=== PATIENT | male | born 1930 | race Caucasian/White ===

== ENCOUNTER 2020-03-23 14:23 | Observation (INO) | payer MEDICARE ==
[~2020-03-23] VITALS: Ht 182.9 cm; Wt 63.5 kg
[2020-03-23 14:44] LABS: BASOPHILS ABSOLUTE AUTO 0.01 K/mm3 (0.00-0.23); BASOPHILS PERCENT AUTO 0 % (0-2); EOSINOPHILS PERCENT AUTO 0 % (0-6); Hemoglobin 12.8 g/dL (13.5-17.5); IMMATURE GRAN ABSOLUTE AUTO 0.08 K/mm3 (0.00-0.10); IMMATURE GRAN PERCENT AUTO 1 % (0-1); LYMPHOCYTES ABSOLUTE AUTO 0.44 K/mm3 (0.84-5.20); LYMPHOCYTES PERCENT AUTO 4 % (21-46); MONOCYTES PERCENT AUTO 6 % (4-13); Mean Corpuscular HGB 33.9 pg (26.0-34.0); Mean Corpuscular HGB Conc 33.7 g/dL (31.5-36.5); Mean Corpuscular Volume 101 fL (80-100); NEUTROPHILS ABSOLUTE AUTO 11.17 K/mm3 (1.96-9.15); NEUTROPHILS PERCENT AUTO 89 % (41-73); Platelet Count 154 K/mm3 (150-400); RDW Coefficient Variation 12.4 % (11.7-14.2); RDW Standard Deviation 45.9 fL (35.1-46.3); Red Blood Cell Count 3.78 M/mm3 (4.30-5.90)
[2020-03-23 14:59] LABS: International Normalized Ratio 1.03
[2020-03-23 15:06] LABS: Alanine Aminotransfer (ALT/SGP 47 U/L (12-78); Albumin, Blood 3.3 g/dL (3.4-5.0); Albumin/Globulin Ratio 0.8 (0.8-1.8); Alk Phos 64 U/L (50-136); Anion Gap 6 mmol/L (6-16); Aspartate Aminotrans (AST/SGOT 61 U/L (12-37); Bilirubin, Total 1.6 mg/dL (0.1-1.0); Blood Urea Nitrogen 41 mg/dL (8-24); Bun/Creatinine Ratio 30.6 (12.0-20.0); CO2, Blood 27 mmol/L (21-32); Calcium, Blood 8.7 mg/dL (8.5-10.1); Chloride, Blood 108 mmol/L (98-108); Creatinine, Blood 1.34 mg/dL (0.60-1.20); Ethanol (Alcohol), Blood, Med <3 mg/dL; Glomerular Filtration Rate 53 (60-); Glucose, Blood 117 mg/dL (70-99); Potassium, Blood 4.4 mmol/L (3.5-5.5); Sodium, Blood 141 mmol/L (136-145); Total Protein, Blood 7.3 g/dL (6.4-8.2)
[2020-03-23] MEDS ORDERED: ATOR10 PO (15:32)
[2020-03-23 17:32] LABS: Source, Urine Catheter
[2020-03-23 17:38] LABS: Appearance, Urine Clear (Clear); Bilirubin, Urine Neg (Neg); Blood, Urine 5+ (Neg); Color, Urine Yellow (P-Yellow); Glucose Qualitative, Urine Neg (Neg); Ketones, Urine Neg (Neg); Leukocyte Esterase, Urine Neg (Neg); Nitrite, Urine Neg (Neg); Protein, Urine 2+ (Neg); Specific Gravity, Urine 1.015 (1.003-1.022); Urobilinogen, Urine NORM (Normal)
[2020-03-23 17:56] LABS: Bacteria Not Seen /hpf; Squamous Epithelial Cells Not Seen /hpf (Few); White Blood Cells, Urine Not Seen /hpf (0-5)
[2020-03-23 19:53] LABS: Influenza A, PCR Negative (NEGATIVE); Influenza B, PCR Negative (NEGATIVE); Resp Syncytial Virus, PCR Negative (NEGATIVE); SARS-Cov-2 (COVID-19) PCR, MMC Negative (NEGATIVE)
--- NOTE | 2020-03-23 22:01 | NUR ---
transfer report from [facility] on 89 year old MAle found down being admitted with CVA. Await admission. DNR status
--- NOTE | 2020-03-24 00:14 | NUR ---
New PT admitted after being found down by Daughter & having altered mental status. PT unable to state name date & reported to have baseline dementia. Speech soft nonsensical to questions asked. He does mutter sentences under his breath. DNR status, PT has Hospice referral. DTR was in ER but not present for admission. PT not able to answer questions about current medical contions or past hx. Pleasnatly confused. High fall risk, has multiple scattered bruises in various stages. NPO for speech therapy eval has PT OT ordered. Has IV fluid infusing after field start IV was not patent. wearing attends was incontinent in ER with fresh attends in place.
--- NOTE | 2020-03-24 02:08 | NUR ---
PT changes from laughing to panic & agression with caregivers trying to keep in bed change attends etc. He was closely observed RN outside door line of sight & he is attempting to flip out of bed repeatedly. He turns self upside down & he needed to have marielle vest applied to prevent further injury. He has multiple briuses & CO back pain when rolling side to side to change attends. Called DR Leos at 0211 await return call. Hollering out. PT has rapid mood swings from laughing to panic & fear. Pinches grabs staff with cares or hangs on to siderails. Only home med appears to be atorvastatin.
--- NOTE | 2020-03-24 04:12 | NUR ---
PT incontinent of bowel & bladder with sm pasty brown bm. Restrained due to high fall risk behavior recent falls AMS & flipping self upside down in bed & repeatedly throwing legs over side rails. resting quietly with IVF running. NPO.
--- NOTE | 2020-03-24 16:55 | NUR ---
Initial palliative care consult: Adal is an 89 year old with a history of advanced dementia, a-fib not on anti-coagulation, hyperlipidemia. He was admitted on 03/23/20 with AMS and 3 falls over the past 3 days. He is awake, but drift off to sleep easily. He is unable to follow commands. García reports she and her S.O. Emory moved in with Adal 4 years ago as his caregivers. She reports that the first two years Adal did really well. The next two years were a little more challanging and now the last week or so has been very challenging. García states she was just released from the hospital in [place] where she was for 5 days. She is struggling with the decision of taking Adal home vs. placing him in a memory care facility. García is his radio time sales supervisor caregiver, she also has an caregiver through [facility] that comes in about 20 hours a week who is private pay. García is struggling with caregiver fatigue and her own health issues. She is also struggling with feelings of guilt that she is unable to physically take care of her dad at this time. García reports Adal has been unable to do his own ADLs over the past few days. He has had a good appetite off and on. He is up between 1-5 times overnight and has no concept of day vs. night. García reports Adal is a , however she is unsure if he has any service connection. García is interested in looking at possible memory care facilities. She is planning to contact the [facility] and [facility] for futher information. She also wonders if there is any possibility of assistance from the VA. She reports that Adal has a good income from his social security and pension and has money in savings and would be able to afford to private pay a memory care facility for the short term. Dr. Umana visited while I was present and reviewed current treatments with García. JENA for CM, Padma Cotton, re: García's request for information re: Adal's VA benefit eligibility and that she is looking into memory care facilities. Gave García the booklet considering comfort care and information on hospice services per her request. Nursing updated. Adal sipped from his strawberry milkshake and cat napped off and on during my visit. He denies discomfort. García states that she isn't sure if her dad even is able to recognize who she is. She reported to Dr. Umana that Adal's speak has been very different since Sunday. PC will continue to follow for symptom management, advanced care planning and caregiver support.
--- NOTE | 2020-03-24 17:27 | NUR ---
SHIFT SUMMARY: NO ACUTE EVENTS THIS SHIFT. ALL RESTRAINTS REMOVED AT 1127 PT NO LONGER EXHIBITING BEHAVIORS THAT WARRANT. SLEEPY AT START OF SHIFT, MORE AWAKE WHEN DAUGHTER NURY VISITED THIS AFTERNOON. NEEDED ASSISTANCE WITH MEALS. RESPONDS TO SPEECH BUT DOES NOT FOLLOW DIRECTIONS. NEURO CHECKS UNCHANGED. AFEBRILE, VSS. INCONTINENT OF B&B. PT AND DAUGHTER HAD MEETING WITH PALLIATIVE CARE TODAY, MAY POSSIBLY GO WITH HOSPICE.
--- NOTE | 2020-03-25 01:25 | NUR ---
2155 RESTRAINTS PT PLACED IN VANNA VEST AND SOFT WRIST RESTRAINTS AFTER NUMEROUS ATTEMPTS TO GET OUT OF BED AND TRYING TO PULL HI IV OUT. PT IN RESTRAINS SLEEPING COMFORTABLY. ATTENDS IS DRY AND CIRCULATION IS GOOD.
--- NOTE | 2020-03-25 04:50 | NUR ---
APPLIED MARINE PHYSICS PROFESSOR SUMMARY PT BEGAN SHIFT BY RIPPING HIS IV TUBING IN HALF AND ATTEMPED TO JUMP OUT OF BED NUMEROUS TIMES SO AN ORDER FOR RESTRAINTS WAS OBTAINED. PT RESTRAINED W VANNA VEST AND SOFT WRIST RESTRAINTS, PT TOLERATED THE RESTRAINTS WELL HE SLEPT COMFORTABLE FOR MOST OF THE SHIFT. PT IS AXO X1 AT BEST HE COULD NOT ACCURATELY SAY HIS DATE. PT IS NOT REDIRECTABLE AND ATTEMPTS TO GRAB STAFF WHEN THEY ARE CLOSE ENOUGH. PT HAD 2 BM'S THIS SHIFT AFTER SUPPOSITORY WAS GIVEN. NUERO CHECKS REMAIN UNCHANGED. WCTM.
--- NOTE | 2020-03-25 16:03 | NUR ---
[facility] follow up visit and meeting with García Gamez. García and her dad are well known to me from the community. García has cared for her dad and other family members for several years. She recently was hospitalized and states it was a wake up call that she cannot keep trying to care for her dad at home. She is interested in hospice (late stage dementia dx) on discharge and is researching memory care facilities where he can remain and receive hospice care. She mentioned [facility] and [facility]. She does not want to consider [address] [facility]. Pt is very agitated but settled with a news paper García had given him for about 10 minutes before he started pulling at his IV, call light etc and trying to get OOB again. García is calm and firm with her dad but states this is a continuous cycle t/o every day. She is clear that she is unable to cont home care but want to be able to visit and be with him so hoping for a facility that will allow this. I left with CM to update on my conversation with García. Adal is cachectic. He is pleasant but restless. He does not report or demonstrate nonverbal painful behaviours. He is incontinent and using attends, although he is pulling at them and trying to remove, along with marielle vest, blankets, gown, etc. I briefly discussed comfort care. García is very familiar with Hospice as she cared for her mother on hospice more than 10 years ago. [facility] will cont to remain avail for advanced care planning and support.
--- NOTE | 2020-03-25 19:36 | NUR ---
SHIFT SUMMARY: PATIENT AGITATED ALL DAY, IN VANNA VEST AND BILATERAL SOFT WRIST RESTRAINTS. INCONTINENT OF B&B, WEARING ATTENDS. SCATTERED BRUISES ALL OVER HIS BODY IN VARIOUS STAGES OF HEALING. TOLERATING DIET, PUREED/NECTAR THISK, NEEDS TO BE FED. IN CHAIR FOR A FEW HOURS TODAY WHILE DAUGHTER VISITED. ALERT, ORIENTED X 0-1, WADE (IS VERY STRONG), DOES NOT FOLLOW COMMANDS. APPEARS FEARFUL AT TIMES, ALTERNATES WITH LAUGHING. PLAN IS FOR PLACEMENT AT INPATIENT HOSPICE.
--- NOTE | 2020-03-26 07:36 | NUR ---
03/26/20 0600 VITALS STABLE. PT WAS MORE RELAXED AFTER SEDATIVE. ACCORDING TO STAFF, HE HAD NOT SLEPT FOR OVER 24 HOURS. REPOSITIONED PER PROTOCOL. IV FLUIDS AT 50ML/HOUR. INCONTINENT OF URINE IN ATTENDS.
--- NOTE | 2020-03-27 05:33 | NUR ---
PATIENT AWAKE MOST OF THE NIGHT PICKING AT ITEMS IN THE AIR AND TRYING TO GET OOB. AROUND BEDTIME, JOCELIN GOT HIS LEGS OVER SIDE OF BED DESPITE THE VANNA VEST AND BEGAN HITTING AND KICKING STAFF TRIED TO GET HIM UP INTO THE BED AND STRAIGHTENED OUT. A RADHA GUERRA WAS CALLED AND ORDER FOR SOFT ANKLE AND WRIST RESTRAINTS WAS GIVEN AND STARTED,
--- NOTE | 2020-03-27 19:09 | NUR ---
SHIFT SUMMARY PT CALM AND COOPERATIVE WITH CARE T/O SHIFT. A&O TO SELF ONLY. PT MUMBLED A LOT DURING THE BEGINNING OF THE SHIFT AND THE DAY WENT ON HE TALKED MORE CLEARLY. HE ALSO BECAME MORE ACTIVE, HOWEVER HE ATTEMPTS TO GET OUT OF BED BY HIMSELF WITHOUT CALLING. BED ALARM IS ON AND PT IS ON CAMERA. RESTRAINTS WERE REMOVED TODAY DUE TO PT BEING CALM AND COOPERATIVE, NOT PULLING AT HIS LINES, AND DAUGHTER BEING AT BEDSIDE. PT TENDS TO BECOME RIGID DURING CARE, HE STIFFINS UP WHEN ATTEMPTING TO REPOSITION HIM OR CHANGING HIS ATTENDS. PT WAS INCONTINENT T/O DAY. PT IS CURRENTLY LYING IN BED WITH CALL LIGHT WITHIN REACH, BED ALARM ON.
--- NOTE | 2020-03-27 19:31 | NUR ---
At approximately 1915, Patient managed to move his head to the foot of the bed and his feet were dangling off the other side. Four staff members assisted in turning this patient around while he kicked and grabbed at us. As last night, Rico appeared frightened and anxious. A marielle vest was applied and order obtained from night hospitalist to do so. 10 mg IV Zyprexa given to calm patient. will continue close observation.
--- NOTE | 2020-03-28 06:44 | NUR ---
PATIENT AWAKE AND DISTRAUGHT ALL NIGHT. VANNA VEST APPLIED EARLY IN THE EVENING PATIENT WAS ENDANGERING HIMSELF HANGING HEAD OFF END OF BED AND FIGHTING KICKING AND GRABBING AT STAFF WHEN WE TRIED TO REPOSITION. sHORTLY AFTER APPLYING THE VANNA, 10MG ZYPREXA GIVEN IM PER ORDER WITH VERY MINIMAL RESULT, THEN 2MG IM HALDOL SHORTLY AFTER ALSO WITH ONLY SLIGHT RESULT. hE STILL APPEARS FRIGHTENED OF EVERYTHING, IS CONTINUOUSLY MUMBLING. PHYSICALLY, BREATH SOUNDS REMAINED MORE CLEAR, AND PATIENT DENIED AND DIDN'T APPEAR TO HAVE ANY DISCOMFORT . aGAIN, PATIENT REFUSED ALL HS MEDICATIONS AT BEDTIME
--- NOTE | 2020-03-28 16:44 | NUR ---
SHIFT SUMMARY NO ACUTE CHANGES T/O SHIFT, PT IS ALERT TO SELF ONLY. PT HAS BEEN IN VANNA T/O SHIFT DUE TO HIS IMPULSIVENESS AND CONFUSION. PT ATTEMPTS TO GET OUT OF BED, AND PLACES FEET OVER RAILS. HE ALSO TENDS TO PEDAL HIS FEET AND PLAY WITH HIS HANDS WHEN AWAKE. HE BECOMES RIGID WHEN CARE IS ATTEMPTED AND CAN BE AGRESSIVE BY GROWLING AND PUSHING AT STAFF. NURSE FROM [facility] CAME BY TO EVALUATE PT WITH DAUGHTER. DC HOLLOW WARE MAKER NOTIFIED OF EVALUATION. PT MAY ALSO BE DC WITH HOSPICE @ [facility]. PT IS CURRENTLY LYING IN BED WITH VANNA, IN NO APPARENT DISTRESS. CALL LIGHT IS WITHIN REACH AND BED ALARM IS ON. PT IS ALSO ON CAMERA. FLUIDS STILL RUNNING 50 ML/HR.
--- NOTE | 2020-03-29 06:24 | NUR ---
No change from previous notes. Patient awake all night, pedeling in air with hands and feet. pushing feet through rails. stiff all the time. Sisi still in place for safety
--- NOTE | 2020-03-29 19:51 | NUR ---
shared bsr with noc nurse, no acute changes noted during shift, rm air, call light in reach
--- NOTE | 2020-03-30 05:30 | NUR ---
SHIFT SUMMARY NO ACUTE EVENTS THIS SHIFT. PT REMAINS IN VANNA VEST D/T CONTINUED TRYING TO GET OUT OF BED, PUSHING LEGS THROUGH SIDE RAILS, AND UNSTEADY GAIT. ORDER RENEWED @ 1999. PT IS A&O TO SELF ONLY AND MUMBLES INCOHERANTLY WHEN TALKING. PT TURNED Q2 WITH PILLOWS FOR SUPPORT. NO OTHER COMPLAINTS FROM PT THIS SHIFT. PT IS LAYING IN BED WITH EYES CLOSED, EVEN AND UNLABORED RESPIRATIONS. BED IN LOWERED POSITION WITH ALARM IN PLACE. CALL LIGHT AND PERSONAL ITEMS WITH IN REACH. NO APPARENT NEEDS OR DISTRESS AT THIS TIME, WILL CONTINUE TO MONITOR UNTIL REPORT GIVEN TO DAY RN.
--- NOTE | 2020-03-30 18:35 | NUR ---
SHIFT SUMMARY PT NOT ORIENTED THOUGH RESPONDS TO VERBAL STIMULI WITH INCOMPREHENSIBLE SPEECH WITH PLEASANT INTONATION. NO ACUTE CHANGES THIS SHIFT. PT DENIES PAIN, SOB AND NC. HEAVY WETTER, CHANGED PRN AND TURNED Q2. BED IN LOW POSITION, CALL LIGHT WITHIN REACH. BED ALARM ON. NO IV IN PLACE
--- NOTE | 2020-03-31 07:59 | NUR ---
Shift summary: Patient is alert but not oriented. Needs feeding assistance, pureed diet with nectar thick liqiuds. Inc. of bowel and bladder. [place] vest is on for safety along with bed alarm, and camera monitor. No IV access, good PO intake without difficulty, Aspiration precations are observed.
--- NOTE | 2020-03-31 19:41 | NUR ---
SHIFT SUMMARY PT AxOx1- SELF. VERY CONFUSED AND MUMBLING OR INCOHERENT SPEECH. PT IN VANNA RESTRAINT VEST FOR IMPULSIVITY, AND HIGH FALL RISK. VERY FIDGETY BEHAVIOR. RESPONDED WELL TO ACTIVITY APRON THIS AFTERNOON. GOOD APPETITE. PT WORKED WITH PT AND PLACED HIM IN THE CHAIR FOR DINNER. PT SEEMS CONTENT IN CHAIR. PER PT DAUGHTER, HE LIKES WEARING HIS SHOES, AND IT HELPS HIM FEEL SECURE. CURRENT PLAN IS TO DC ON HOSPICE TO [facility]. SPEECH THERAPY RE-EVAL TODAY. PT STILL ON PUREE WITH NECTAR THICK LIQUIDS, REQ FEEDER FOR MEALS, PLUS MEDS CRUSHED IN APPLESAUCE. DAUGHTER CB IN ROOM TONIGHT. UPDATES ON STATUS TODAY. PT WAS TALKING IN FULL SENTENCES LATER THIS AFTERNOON, BUT THEY WERE STILL OUT OF CONTEXT. CURRENTLY RESTING IN CHAIR, PREOCCUPIED WITH ACTIVITY APRON. VITALS REVIEWED. PT APPEARS CONTENT.
--- NOTE | 2020-03-31 22:02 | NUR ---
CALL TO HOSPITALIST AT 1999 / RESTRAINTS RENEWED PT WEARING VEST RESTRAINT, RESTRAINT RENEWED BY DR. GALDAMEZ DUE TO ONGOING RISK FOR INJURY TO SELF.
--- NOTE | 2020-04-01 04:28 | NUR ---
SHIFT SUMMARY: VSS. AFEB. AAO TO NONE. PT IS PLEASANT, MUMBLING INCOHERENTLY TO SELF AND STAFF, LAUGHING OUT LOUD AT HIS OWN COMMENTS. T/F FROM CHAIR TO BED W/ 2 MOD ASSIST AND GAIT BELT. PT VERY STIFF W/ T/F AND STRUGGLED TO COMPLETELY STRAIGHTEN HIS LEGS. INCONTINENT AND WEARING ATTEND. MED HARD PELLET BM'S PRODUCED AFTER HS SUPPOSITORY. PT STIFFENS UP, RESISTENT AND GROANS W/ CARES. VANNA VEST RESTRAINT ON, PT TOLERATING WELL. REMOTE CAMERA MONITORING IN PLACE, 3 BED RAILS UP, BED ALARM ON. PLAYS W/FIDGET APRON FOR DISTRACTION AND ACTIVITY. PT IS USING ALL EXTREMITIES WITHOUT APPARENT WEAKNESS OR NEGLECT. PERRL, NO FACIAL DROOPING. NO ACUTE OVERNIGHT CHANGES. WCTM.
[2020-04-01] MEDS ORDERED: MORP20L PO (13:27)
[2020-04-01] MEDS ORDERED: Ativan1 MG PO (13:27)
--- NOTE | 2020-04-01 14:45 | NUR ---
REE LACTATED RINGERS PER T.O. FROM DR. GREENE, D/C LACTATED RINGERS. ORDER UPDATED.
--- NOTE | 2020-04-01 17:33 | NUR ---
Shift Summary Appears to have advanced dementia and extremely confused. Sometimes mumbled speech, pleasant and happy when communicating with staff. Unable to follow simple commands, fearful of any activity. Requires 2-3 max assist for transfers to and from bed. Rigid and stiff. Chair/Bed alarm on. Daughter visiting this afternoon, patient does appear to recognized daughter somewhat. Denies any pain for this RN. Neuro checks remain unchanged. Plan for discharge to [facility] tomorrow at 1030 on Hospice. WCTM.
--- NOTE | 2020-04-02 05:34 | NUR ---
SHIFT SUMMARY VSS. AFEB. A/O TO FAMILY. PLEASANT. ATTEMPTS CONVERSATION W/ STAFF. SPEECH IS NONSENSICAL. MOOD IS GOOD. TAKES PO INTAKE WELL. INCONT OF B/B. STOOL IS HARD SMALL PELLETS. PT STIFF AND RESISTANT W/ TURNS. DOES NOT FOLLOW DIRECTION WELL. VERY CONFUSED. VANNA VEST IN PLACE DUE TO POOR SAFETY AWARENESS AND HIGH RISK FOR FALLS. REMOTE CAMERA MONITORING IN PLACE. BED ALARM ON AT ALL TIMES. NO ACUTE CHANGES OVERNIGHT. WCTM.
--- NOTE | 2020-04-02 10:18 | NUR ---
ROXANOL 5MG PATIENT REPORTS PAIN IN R LEG AND HEADACHE. RECEIVED VERBAL ORDER FROM DR. RODRÍGUEZ FOR ONE TIME DOSE OF ROXANOL 5MG SL. EMAR UPDATED.
--- NOTE | 2020-04-02 10:36 | NUR ---
Discharge Summary Pleasantly confused. Daughter García at bedside. Patient discharging to [facility]. Packet will be provided to horse and wagon driver at pickup. Patient dressed and ready for pickup. Discharging on hospice. Scripts included in packet. Transportation set up by [facility]. Medicated x 1 for L knee pain. Personal belongings including bilateral hearing aids sent with García.
--- NOTE | 2020-04-02 18:01 | NUR ---
Report called upon discharge to [facility] to give report. L/M for RN to call back for report because RN busy at the time. No call returned so this RN called back and gave report to [facility] staff Jeanette. Per Jeanette, no RN currently on site. Jeanette took report and will give to RN.
== END 2020-04-02 10:56 | disposition hospice, inpatient (51) ==
LOC: ER 14:23 → MEDS 14:24
PROVIDERS: Emergency Medicine; ADMIT Internal Medicine
DX: G92 Toxic encephalopathy (principal); F03.90 Unspecified dementia, unspecified severity, without behavioral disturbance, psychotic disturbance, mood disturbance, and anxiety; N18.30 Chronic kidney disease, stage 3 unspecified; I48.91 Unspecified atrial fibrillation; E78.5 Hyperlipidemia, unspecified; Z87.891 Personal history of nicotine dependence; Z66 Do not resuscitate; Z79.899 Other long term (current) drug therapy; Z20.822 Contact with and (suspected) exposure to COVID-19
CPT/HCPCS: 0241U; 36415; 70450; 70496; 70498; 71045; 74176; 80053; 81001; 82140; 83605; 84484; 85025; 85610; 85730; 87040; 92526; 92610; 93005; 93010; 96360; 96361; 96372; 97110; 97112; 97162; 97165; 97530; 97535; 99285-25; A9270; G0378; G0480; J1630; J1940; J7030; J7120; Q9967